=== PATIENT | female | born 2000 | race Caucasian/White ===

== ENCOUNTER 2018-10-05 23:29 | Emergency (ER) | payer MEDICAID ==
[~2018-10-05] VITALS: Ht 170.2 cm; Wt 80.0 kg
[2018-10-06] MEDS ORDERED: IBUPROFEN 400MG TABLET PO ONE (00:30)
[2018-10-06 00:55] LABS: BASOPHILS % 0.6 % (0.0-2.0); EOSINOPHILS % 2.3 % (0.0-5.0); HEMATOCRIT. 40.3 % (36.0-48.0); HEMOGLOBIN. 13.5 g/dL (12.0-16.0); MEAN PLATELET VOLUME 9.4 fl (7.4-10.4); MONOCYTES % 6.6 % (2.0-8.0); NEUTROPHILS % 57.5 % (40.0-76.0); PLATELET 230 x1000/uL (130-400); RED CELL DISTRIBUTION WIDTH 13.8 % (11.6-14.6)
[2018-10-06 01:00] LABS: CHLORIDE 108 mEq/L (98-107)
[2018-10-06 01:08] LABS: CLARITY URINE CLEAR (CLEAR); COLOR URINE YELLOW (YELLOW); KETONES URINE NEGATIVE (NEGATIVE); LEUKOCYTE ESTERASE URINE NEGATIVE (NEGATIVE); NITRITE URINE NEGATIVE (NEGATIVE); OCCULT BLOOD URINE NEGATIVE (NEGATIVE); PROTEIN URINE NEGATIVE (NEGATIVE); SPECIFIC GRAVITY URINE 1.014 (1.005-1.030); UROBILINOGEN URINE 0.2 E.U./dL (0.2-1.0)
[2018-10-06 01:20] LABS: HCG SCREEN NEGATIVE
[2018-10-06 03:28] VITALS: BP 124/80
[2018-10-06] MEDS ORDERED: IOHEXOL-350 100 ML BOTTLE ONE (03:45)
== END 2018-10-06 03:29 | disposition home or self-care (01) ==
LOC: ER 23:29
DX: R07.89 Other chest pain (principal); F41.9 Anxiety disorder, unspecified
CPT/HCPCS: 36415; 71045; 71275; 80053; 81003; 81025; 84484; 84703; 85025; 85379; 93005; 99284; Q9967